=== PATIENT | female | born 1995 | race Two or more races ===

== ENCOUNTER 2016-10-21 09:24 | Emergency (ER) | payer MEDICAID ==
[~2016-10-21] VITALS: Ht 167.6 cm; Wt 95.3 kg
[2016-10-21 10:29] VITALS: BP 114/90
== END 2016-10-21 11:32 | disposition home or self-care (01) ==
LOC: ER 09:24
DX: N39.0 Urinary tract infection, site not specified (principal); N93.9 Abnormal uterine and vaginal bleeding, unspecified; Z98.890 Other specified postprocedural states
CPT/HCPCS: 81025